=== PATIENT | female | born 1980 | race Caucasian/White ===

== ENCOUNTER 2017-06-17 20:05 | Emergency (ER) | payer OTHER ==
[2017-06-17] MEDS ORDERED: methylPREDNISolone ACETATE 80 MG/ML VIAL IM ONE (20:15)
--- NOTE | 2017-06-17 20:37 | ED Physician Documentation ---
Skin Rash - HISTORIAN Historian: patient - HPI Chief Complaint: Skin Rash Onset: days ago Timing: worse Duration: worse Location: facial, other (right hip) Quality: itchy, painful, burning Context: Other Exposure: poison yamel, poison oak Further Comments: yes (37 year old female patient presents with complaint of poison yamel; states she was out mushroom hunting yesterday. Has used benadryl with no improvement.) - ROS CONST: none CVS/RESP: none EYES/ENT: eye itching GI/: none MS/SKIN/LYMPH: none NEURO/PSYCH: none - PAST HX Past History: none Other History: none Allergies/Adverse Reactions: Allergies Allergy/AdvReac Type Severity Reaction Status Date / Time codeine Allergy Intermediate Hives Verified 06/17/17 21:13 Home Medications: Ambulatory Orders Medication Instructions Recorded NK [NK] 06/17/17 - SOCIAL HX Smoking History: cigarettes - FAMILY HX Family History: denies: none - VITAL SIGNS Vital Signs: Vital Signs Temp Pulse Resp BP Pulse Ox 98.4 F 106 H 18 149/100 98 06/17/17 20:06 06/17/17 21:09 06/17/17 21:09 06/17/17 21:09 06/17/17 21:09 - REVIEWED ASSESSMENTS Nursing Assessment Reviewed: Yes Vitals Reviewed: Yes ED Results Lab/Radiology - Orders Orders: ED Orders Category Date Time Status methylPREDNISolone ACETATE [Depo-Medrol] Med 06/17/17 20:15 Discontinued 80 mg IM NOW ONE Skin Rash Physical Exam - EXAM General Appearance: mild distress Skin: warm,dry, skin rash (facial - erythema and edema), erythema (facial ) Location: face Character: asymmetric, patchy, erythematous Symptoms: tenderness Extremities: non-tender, nml ROM, no edema Respiratory: no resp distress, chest non-tender, breath sounds normal CVS: reg. rate & rhythm, heart sounds nml Neuro/Psych: oriented x3, CN's nml as tested, motor nml, sensation nml, mood/ affect nml Discharge Clincal Impression: Poison yamel dermatitis Referrals: Mireya Park MD [Primary Care Provider] - 2 Days Additional Instructions: Calamine lotion or benadryl creme as needed for itching. Benadryl tabs 1-2 every 4-6 hours as needed for itching. (do not exceed 300mg in 24 hours) Condition: Stable Disposition: 01 HOME, SELF-CARE Decision to Admit: NO Decision Time: 20:35
[2017-06-17 21:11] VITALS: BP 149/100
== END 2017-06-17 20:49 | disposition home or self-care (01) ==
LOC: ED 20:05
DX: L24.7 Irritant contact dermatitis due to plants, except food (principal)
CPT/HCPCS: 99282; J1040

== ENCOUNTER 2017-12-10 21:20 | Emergency (ER) | payer OTHER ==
[2017-12-10 21:41] VITALS: BP 108/90
[2017-12-10] MEDS ORDERED: traMADol HCL 50 MG TABLET PO ONE (22:20)
--- NOTE | 2017-12-11 00:01 | ED Physician Documentation ---
General Adult - HISTORIAN Historian: patient - HPI Stated Complaint: ? Hemorrhoids Chief Complaint: Rectal Pain Additional Information: intro self as [employer]. pt presents to the ED c/o severe rectal pain from her hemorrhoids. pt reports she has had rectal pain 1.5 years off/on due to these. pt reports GI scope last year that showed internal hemorrhoids. pt reports she has tried witch fady and homemade prep H with no relief. pt denies other symptoms/pain - ROS CONST: no problems. denies: fever, recent illness, weakness, chills EYES/ENT: none CVS/RESP: none. denies: chest pain, shortness of breath GI/: other (rectal pain). denies: abdominal pain, problems urinating, vomiting, nausea, diarrhea, black stools MS/SKIN/LYMPH: none NEURO/PSYCH: headache - PAST HX Past History: other (umbilical hernia IBS) Surgeries/Procedures: other (tubal ligation) Allergies/Adverse Reactions: Allergies Allergy/AdvReac Type Severity Reaction Status Date / Time codeine Allergy Intermediate Hives Verified 06/17/17 21:13 Home Medications: Ambulatory Orders Medication Instructions Recorded NK 06/17/17 - SOCIAL HX Smoking History: less than 1 pack/day Alcohol Use: occasionally Drug Use: none - FAMILY HX Family History: No - VITAL SIGNS Vital Signs: Vital Signs Temp Pulse Resp BP Pulse Ox 97.1 F L 88 24 108/90 99 12/10/17 21:20 12/10/17 22:38 12/10/17 22:38 12/10/17 22:38 12/10/17 22:38 - REVIEWED ASSESSMENTS Nursing Assessment Reviewed: Yes Vitals Reviewed: Yes ED Results Lab/Radiology - Orders Orders: ED Orders Category Date Time Status traMADol HCL [Ultram] Med 12/10/17 22:20 Discontinued 50 mg PO NOW ONE General Adult Physical Exam - PHYSICAL EXAM GENERAL APPEARANCE: mild distress NECK: normal inspection RESPIRATORY: no resp distress CVS: reg rate & rhythm, heart sounds normal ABDOMEN: soft, no organomegaly, normal bowel sounds RECTAL: hemorrhoids (no discoloration, tender. Extend 1-1.5 cm out from anus. very mild edema. ), tenderness SKIN: warm/dry, normal color NEURO: oriented X3, motor nml, sensation nml Discharge Clincal Impression: Acute hemorrhoid Referrals: Mireya Park MD [Primary Care Provider] - 2 Days Additional Instructions: follow up with primary care tomorrow for further referral. Use over the counter stool softener as directed on label like colace. Obtain hemorrhoid pillow from store. use shower and sitz baths to cleanse after bowel movement. use over the counter preparation H (hydrocortisone/lidocaine topical ointment) 4 times a day, and tucks pads. Condition: Good Disposition: 01 HOME, SELF-CARE Decision to Admit: NO Date of Decison to Admit: 12/11/17 Decision Time: 22:30
== END 2017-12-10 22:38 | disposition home or self-care (01) ==
LOC: ED 21:20
DX: K64.9 Unspecified hemorrhoids (principal)
CPT/HCPCS: 99282

== ENCOUNTER 2018-12-30 12:56 | Emergency (ER) | payer MEDICAID, OTHER ==
--- NOTE | 2018-12-30 13:08 | ED Physician Documentation ---
Abdominal Pain - HISTORIAN Historian: patient - HPI Stated Complaint: hernia she is concerned might be septic Chief Complaint: General Adult Onset: hours (5) Duration: constant Timing: better Context: denies: out of country travel, bad food, recent trauma Severity: mild Quality: other (She had pain last night this is gone today ) Associated Symptoms: nausea. denies: fever, chills, vomiting, coffee ground emesis, bloody emesis, diarrhea, bloody stools, grossly bloody stools, mucous, sweating, loss of appetite, chest pain, testicular pain, back pain, neck pain Exacerbated by: nothing Relieved by: nothing Further Comments: yes (reports she has an umbilical hernia and she was due for surgrey she did not make this appt. She was told by her physician this hernia could get septic so she is worried because she feels a little weak, nasueated and sometimes dizzy "just not right" denies any head injury. She had pain around the hernia last night but this has resovled today. She had a normal bowel moveme nt today and is eating normally no fever no vomiting or diarrhea) - ROS CONST: no problems - SOCIAL HX Smoking History: cigarettes Alcohol Use: none Drug Use: none - FAMILY HX Family History: none - PAST HX Past History: none Surgeries/Procedures: none Immunizations: UTD Home Medications: Ambulatory Orders Medication Instructions Recorded NK 06/17/17 Allergies/Adverse Reactions: Allergies Allergy/AdvReac Type Severity Reaction Status Date / Time codeine Allergy Intermediate Hives Verified 12/30/18 13:11 - VITAL SIGNS Vital Signs: Vital Signs Temp Pulse Resp BP Pulse Ox 96.6 F L 94 H 15 105/63 98 12/30/18 13:51 12/30/18 13:51 12/30/18 13:51 12/30/18 13:51 12/30/18 13:51 - REVIEWED ASSESSMENTS Nursing Assessment Reviewed: Yes Vitals Reviewed: Yes ED Results Lab/Radiology - Lab Results Lab Results: Lab Results 12/30/18 12/30/18 13:15 13:15 WBC 6.90 K/ul K/ul (4.00-12.00) RBC 4.13 M/ul M/ul (3.90-5.20) Hgb 12.6 g/dL g/dL (11.5-16.0) Hct 38.1 % % (34.5-46.5) MCV 92.0 fl fl (80.0-100.0) MCH 30.6 pg pg (28.0-34.0) MCHC 33.1 g/dL g/dL (30.0-36.0) RDW 10.7 % L % (11.3-14.3) Plt Count 217 K/mm3 K/mm3 (130-400) Neut % (Auto) 63.8 % % (39.0-79.0) Lymph % (Auto) 28.7 % % (16.0-50.0) [place] % (Auto) 5.2 % % (0.0-11.0) Eos % (Auto) 2.0 % % (0.0-6.8) Baso % (Auto) 0.3 % % (0.0-1.5) Neut # (Auto) 4.4 # k/uL # k/uL (1.4-7.7) Lymph # (Auto) 2.0 # k/uL # k/uL (0.6-4.0) [place] # (Auto) 0.4 # k/uL # k/uL (0.0-0.9) Eos # (Auto) 0.1 # k/uL # k/uL (0.0-0.6) Baso # (Auto) 0.0 # k/uL # k/uL (0.0-0.5) Sodium 141 mmol/L mmol/L (137-145) Potassium 3.9 mmol/L mmol/L (3.5-5.1) Chloride 105 mmol/L mmol/L (98-107) Carbon Dioxide 26 mmol/L mmol/L (22-30) Anion Gap 13.9 BUN 12 mg/dL mg/dL (7-17) Creatinine 0.64 mg/dL mg/dL (0.52-1.04) Estimated Creat Clear 127 Est GFR ( Amer) > 60 (60 - ) Est GFR (Non-Af Amer) > 60 (60 - ) Glucose 115 mg/dL H mg/dL (74-106) Calcium 9.3 mg/dL mg/dL (8.4-10.2) Total Bilirubin 0.3 mg/dL mg/dL (0.2-1.3) AST 18 U/L U/L (15-46) ALT 13 U/L U/L (0-35) Alkaline Phosphatase 73 U/L U/L (38-126) Total Protein 6.5 g/dL g/dL (6.3-8.2) Albumin 3.7 g/dL g/dL (3.5-5.0) - Orders Orders: ED Orders Category Date Time Status CBC/PLATELET/DIFF Stat Lab 12/30/18 13:15 Completed CMP Stat Lab 12/30/18 13:15 Completed Abdominal Pain Physical Exam - Physical Exam General Appearance: no acute distress, alert EENT: eye inspection normal, ENT inspection normal, pharynx normal, no signs of dehydration NECK: normal inspection RESPIRATORY: no resp distress, chest non-tender, breath sounds normal CVS: reg rate & rhythm, heart sounds normal ABDOMEN: soft, normal bowel sounds, no distension, non-tender BACK: normal inspection, no CVA tenderness SKIN: warm/dry EXTREMITIES: non-tender, normal range of motion, no evidence of injury, no edema NEURO: oriented X3 Vital Signs: Vital Signs Temp Pulse Resp BP Pulse Ox 96.6 F L 94 H 15 105/63 98 12/30/18 13:51 12/30/18 13:51 12/30/18 13:51 12/30/18 13:51 12/30/18 13:51 Discharge Clincal Impression: Reflux esophagitis Referrals: Mireya Park MD [Primary Care Provider] - 2 Days Comments: 1. Zantc 150 mg take 1 by mouth twice daily x 10 days 2. CALL your surgeon and reschedule 3. Increase your fluids 4. Return to ER for follow up Condition: Stable Disposition: 01 HOME, SELF-CARE Decision to Admit: NO Date of Decison to Admit: 12/30/18 Decision Time: 13:48
[2018-12-30 13:12] VITALS: BP 105/63
[2018-12-30 13:26] LABS: BASOPHILS % 0.3 % (0.0-1.5); NEUTROPHILS # 4.4 # k/uL (1.4-7.7)
[2018-12-30 13:44] LABS: eGFR (Non-African) > 60
== END 2018-12-30 13:51 | disposition home or self-care (01) ==
LOC: ED 12:56
DX: K21.0 Gastro-esophageal reflux disease with esophagitis (principal)
CPT/HCPCS: 80053; 85025; 99281; 99282

== ENCOUNTER 2019-01-28 11:56 | Emergency (ER) | payer MEDICAID, OTHER ==
--- NOTE | 2019-01-28 12:00 | ED Physician Documentation ---
General Adult - HISTORIAN Historian: patient <Luba Koch - Last Filed: 01/28/19 12:00> - HPI Stated Complaint: foot laceration Chief Complaint: General Adult Onset: days ago (1) Timing: still present Severity: moderate Further Comments: yes (Pt is a 38 yo female with a foot laceration. Pt struck foot on a piece of metal at the bottom of door last evening. Small laceration to dorsum of L foot. Tetanus is not utd.) - ROS CONST: no problems EYES/ENT: none CVS/RESP: none GI/: none MS/SKIN/LYMPH: other (laceration L foot) - PAST HX Past History: none - SOCIAL HX Smoking History: cigarettes - FAMILY HX Family History: No - REVIEWED ASSESSMENTS Nursing Assessment Reviewed: Yes Vitals Reviewed: Yes <Tomas Garrido - Last Filed: 01/28/19 15:50> - PAST HX Allergies/Adverse Reactions: Allergies Allergy/AdvReac Type Severity Reaction Status Date / Time codeine Allergy Intermediate Hives Verified 01/28/19 12:18 Home Medications: Ambulatory Orders Medication Instructions Recorded Cephalexin [Keflex] 500 mg PO Q12H #10 capsule 01/28/19 - VITAL SIGNS Vital Signs: Vital Signs Temp Pulse Resp BP Pulse Ox 99.0 F 100 H 20 104/66 96 01/28/19 12:03 01/28/19 13:43 01/28/19 13:43 01/28/19 13:43 01/28/19 13:43 Procedures Wound Location: lower extremity (L foot) Wound Length: 1.5 cm Wound's Depth, Shape: superficial Wound Explored: clean Irrigated w/ Saline (ccs): 30 Betadine Prep?: Yes (azalea) Anesthesia: 1% Lidocaine Volume of Anesthetic: 3 cc Wound Debrided: minimal Wound Repaired With: sutures Suture Size/Type: 4:0, nylon Number of Sutures: 3 Layer Closure?: No <Tomas Garrido - Last Filed: 01/28/19 15:50> Progress <Tomas Garrido - Last Filed: 01/28/19 15:50> - Progress Progress: Rx Keflex 500 mg. Take one every 12 hours for 5 days. Apply topical antibiotic such as Neosporin, Bacitracin, or Triple Antibiotic to sutured area twice daily for 5 days. Follow up with primary provider in 5 to 6 days for suture removal. (Tomas Garrido) - Orders Orders: ED Orders Category Date Time Status Diph,Pertuss(Acell),Tet Vac/Pf [Adacel] Med 01/28/19 12:39 Discontinued 0.5 ml IM .ONCE ONE Lidocaine 1% 5ml [Xylocaine] Med 01/28/19 12:57 Discontinued 50 mg IJ NOW ONE General Adult Physical Exam - PHYSICAL EXAM GENERAL APPEARANCE: mild distress NECK: normal inspection, supple RESPIRATORY: no resp distress, chest non-tender, breath sounds normal CVS: reg rate & rhythm, heart sounds normal ABDOMEN: soft, no organomegaly, normal bowel sounds BACK: normal inspection SKIN: other (1.5 cm laceration dorsum of L foot) EXTREMITIES: other (1.5 cm laceration dorsum of L foot) NEURO: oriented X3, motor nml, sensation nml <Tomas Garrido - Last Filed: 01/28/19 15:50> Discharge <Luba Koch - Last Filed: 01/28/19 12:00> Decision to Admit: NO Decision Time: 13:19 <Tomas Garrido - Last Filed: 01/28/19 15:50> Clincal Impression: laceration Prescriptions: Cephalexin [Keflex] 500 mg PO Q12H #10 capsule Referrals: Mireya Park MD [Primary Care Provider] - Condition: Good Disposition: 01 HOME, SELF-CARE
[2019-01-28] MEDS ORDERED: DIPH,PERTUSS(ACELL),TET VAC/PF 0.5 ML DISP.SYRIN IM ONE (12:39)
[2019-01-28] MEDS ORDERED: Lidocaine 1% 5ml 10 MG/ML VIAL IJ ONE (12:57)
[2019-01-28 13:45] VITALS: BP 104/66
== END 2019-01-28 13:40 | disposition home or self-care (01) ==
LOC: ED 11:56
DX: S91.312A Laceration without foreign body, left foot, initial encounter (principal); W22.8XXA Striking against or struck by other objects, initial encounter
CPT/HCPCS: 12001; 90715; 99283; 99284

== ENCOUNTER 2019-02-05 10:38 | Emergency (ER) | payer MEDICAID, OTHER ==
--- NOTE | 2019-02-05 11:00 | ED Physician Documentation ---
Suture Removal - HISTORIAN Historian: patient - HPI Stated Complaint: left foot suture removal Chief Complaint: Suture Removal Previous ER Treatment: other (suture removal ) Symptoms Since Procedure: none Further Comments: yes (She has no complaints) - ROS NEURO: denies: headache, fainting, dizziness - PAST HX Past History: none Allergies/Adverse Reactions: Allergies Allergy/AdvReac Type Severity Reaction Status Date / Time codeine Allergy Intermediate Hives Verified 02/05/19 11:02 Home Medications: Ambulatory Orders Medication Instructions Recorded Cephalexin [Keflex] 500 mg PO Q12H #10 capsule 01/28/19 - SOCIAL HX Smoking History: cigarettes Alcohol Use: none Drug Use: none - FAMILY HX Family History: none - VITAL SIGNS Vital Signs: Vital Signs Temp Pulse Resp BP Pulse Ox 104/66 01/28/19 13:43 - REVIEWED ASSESSMENTS Nursing Assessment Reviewed: Yes Vitals Reviewed: Yes Progress - Progress Progress: 2 sutures removed 3rd was already removed Suture Removal Physical Exam - Physical Exam General Appearance: no acute distress, alert Neuro/Vascular/Tendon: no vascular compromise Healing Wound: healing wound, no infection Head/ENT: nml inspection Respiratory: chest non-tender CVS: reg. rate & rhythm, heart sounds nml Abdomen: non-tender Discharge Clincal Impression: Visit for suture removal Referrals: Mireya Park MD [Primary Care Provider] - 2 Days Comments: Keep skin clean and dry Follow up with PCP for any concerns Condition: Stable Disposition: 01 HOME, SELF-CARE Decision to Admit: NO Date of Decison to Admit: 02/05/19 Decision Time: 11:00
[2019-02-05 12:01] VITALS: BP 125/70
== END 2019-02-05 11:05 | disposition home or self-care (01) ==
LOC: ED 10:38
DX: Z48.02 Encounter for removal of sutures (principal)
CPT/HCPCS: 99281; 99282